=== PATIENT | male | born 1990 | race African-American/Black ===

== ENCOUNTER 2019-09-28 11:16 | Emergency (ER) | payer MEDICAID ==
[~2019-09-28] VITALS: Ht 175.3 cm; Wt 90.0 kg
[2019-09-28 11:21] VITALS: BP 128/76
[2019-09-28] MEDS ORDERED: LIDOCAINE HCL/PF 1% 10 MG/ML 5ML VIAL IJ ONE (11:45)
[2019-09-28] MEDS ORDERED: KETOROLAC 30MG/ML VIAL IM ONE (11:45)
[2019-09-28] MEDS ORDERED: BACITRACIN ZINC OINT UDPKT TOP ONE (11:45)
== END 2019-09-28 13:50 | disposition home or self-care (01) ==
LOC: ER 11:26
DX: S01.81XA Laceration without foreign body of other part of head, initial encounter (principal); W20.8XXA Other cause of strike by thrown, projected or falling object, initial encounter; Y93.89 Activity, other specified; Y92.89 Other specified places as the place of occurrence of the external cause; Y99.8 Other external cause status
CPT/HCPCS: 12015; 96372; 99284; A4217; J1885; J3490; Z7610

== ENCOUNTER 2019-09-30 13:49 | Emergency (ER) | payer MEDICAID ==
[~2019-09-30] VITALS: Ht 175.3 cm; Wt 89.0 kg
[2019-09-30 13:53] VITALS: BP 130/70
== END 2019-09-30 18:42 | disposition left against medical advice (07) ==
LOC: ER 13:49
DX: R58 Hemorrhage, not elsewhere classified (principal); Z53.21 Procedure and treatment not carried out due to patient leaving prior to being seen by health care provider

== ENCOUNTER 2019-10-02 14:31 | Emergency (ER) | payer MEDICAID ==
[~2019-10-02] VITALS: Ht 188 cm; Wt 86.0 kg
[2019-10-02 14:49] VITALS: BP 138/61
== END 2019-10-02 15:55 | disposition home or self-care (01) ==
LOC: ER 14:31
DX: Z48.02 Encounter for removal of sutures (principal)
CPT/HCPCS: 99281

== ENCOUNTER 2019-11-27 21:42 | Emergency (ER) | payer MEDICAID ==
[~2019-11-27] VITALS: Ht 188 cm; Wt 88.0 kg
[2019-11-27] MEDS ORDERED: IBUPROFEN 600MG TABLET PO ONE (23:00)
[2019-11-28 00:08] VITALS: BP 133/87
== END 2019-11-28 00:14 | disposition home or self-care (01) ==
LOC: ER 21:42
DX: S62.636A Displaced fracture of distal phalanx of right little finger, initial encounter for closed fracture (principal); W22.01XA Walked into wall, initial encounter; Y93.89 Activity, other specified; Y92.89 Other specified places as the place of occurrence of the external cause; Y99.8 Other external cause status
CPT/HCPCS: 29130; 73130; 99283